=== PATIENT | female | born 1985 | race Hispanic/Latino ===

== ENCOUNTER 2018-11-20 11:35 | Emergency (ER) | payer OTHER ==
[2018-11-20] MEDS ORDERED: ASPIRIN 325 MG TABLET ONE (12:10)
[2018-11-20 12:18] LABS: BASOPHILS % (AUTO) 0.5 % (0.0-5.0); EOSINOPHILS % (AUTO) 0.7 % (0.0-8.0); HEMATOCRIT 37.6 % (36-48); LYMPHOCYTES % (AUTO) 18.6 % (21.0-51.0); MEAN CORPUSCULAR HEMOGLOBIN 28.2 pg (27.0-33.0); MEAN CORPUSCULAR HGB CONC 32.7 g/dL (32.0-36.0); MEAN CORPUSCULAR VOLUME 86.3 fL (79-99); MONOCYTES % (AUTO) 3.7 % (3.0-13.0); NEUTROPHILS % (AUTO) 76.5 % (40.0-77.0); NUCLEATED RED BLOOD CELLS 0.1 % (0.0-0.19); RED BLOOD CELL COUNT(AUTO) 4.36 MIL/uL (4.00-5.50); RED CELL DISTRIBUTION WIDTH 12.9 % (11.0-15.5); WHITE BLOOD COUNT (AUTO) 10.4 K/uL (4.8-10.8)
[2018-11-20 12:24] LABS: CREATININE 0.8 mg/dL (0.5-1.5)
[2018-11-20 12:28] LABS: ALBUMIN 3.7 g/dL (3.5-5.0); BILIRUBIN,TOTAL 0.3 mg/dL (0.2-1.0); TOTAL PROTEIN, SERUM 7.8 g/dL (6.0-8.3)
[2018-11-20 13:05] LABS: B-TYPE NATRIURETIC PEPTIDE 16 pg/mL (0-100)
[2018-11-20 13:07] LABS: PLATELET COUNT (AUTO) 117 K/uL (130-400)
[2018-11-20 13:25] LABS: HCG,QUAL RESULT NEGATIVE (NEGATIVE)
[2018-11-20 13:28] LABS: AMPHET/METH SCREEN,URINE NEGATIVE (NEGATIVE); BARBITURATE SCREEN, URINE NEGATIVE (NEGATIVE); BENZODIAZEPINES SCREEN,URINE NEGATIVE (NEGATIVE); CANNABINOID SCREEN,URINE NEGATIVE (NEGATIVE); COCAINE SCREEN,URINE NEGATIVE (NEGATIVE); OPIATE SCREEN,URINE NEGATIVE (NEGATIVE); PHENCYCLIDINE SCREEN,URINE NEGATIVE (NEGATIVE)
== END 2018-11-20 13:57 | disposition home or self-care (01) ==
LOC: EDH 11:35
DX: R00.2 Palpitations (principal); R07.9 Chest pain, unspecified; F41.9 Anxiety disorder, unspecified; K21.9 Gastro-esophageal reflux disease without esophagitis; Z90.49 Acquired absence of other specified parts of digestive tract; Z87.891 Personal history of nicotine dependence
CPT/HCPCS: 36415; 71045; 80053; 80305; 81025; 82550; 83880; 84484; 85025; 93005

== ENCOUNTER 2019-03-14 05:57 | Emergency (ER) | payer OTHER ==
[2019-03-14] MEDS ORDERED: ONDANSETRON HCL 4 MG/2 ML VIAL ONE (06:53)
[2019-03-14] MEDS ORDERED: ACETAMINOPHEN EXTRA STRENGTH 500 MG TABLET ONE (06:54)
== END 2019-03-14 07:26 | disposition home or self-care (01) ==
LOC: EDH 05:57
DX: B34.9 Viral infection, unspecified (principal); K21.9 Gastro-esophageal reflux disease without esophagitis; Z90.49 Acquired absence of other specified parts of digestive tract; Z91.018 Allergy to other foods; Z98.890 Other specified postprocedural states
CPT/HCPCS: 87804 ×2; 96374; 99284; J2405

== ENCOUNTER 2019-12-08 23:05 | Emergency (ER) | payer OTHER | END 2019-12-09 00:23 | disposition home or self-care (01) | LOC: EDH 23:05 | DX: R00.2 Palpitations (principal); R51 Headache; R42 Dizziness and giddiness; R11.0 Nausea; K21.9 Gastro-esophageal reflux disease without esophagitis; Z90.49 Acquired absence of other specified parts of digestive tract; Z91.018 Allergy to other foods | CPT/HCPCS: 93005 ==